=== PATIENT | female | born 1970 | race Caucasian/White ===

== ENCOUNTER 2017-07-08 20:14 | Emergency (ER) | payer MEDICAID | END 2017-07-08 22:43 | disposition home or self-care (01) | LOC: D.ER 20:14 | DX: M54.16 Radiculopathy, lumbar region (principal) ==

== ENCOUNTER 2019-07-22 08:16 | Emergency (ER) | payer MEDICAID ==
[~2019-07-22] VITALS: Ht 165.1 cm; Wt 78.2 kg
[2019-07-22 08:19] VITALS: Ht 165.1 cm; Wt 78.2 kg
[2019-07-22] MEDS ORDERED: CELEXA40 MG PO (08:21)
[2019-07-22] MEDS ORDERED: REXULTI1 MG PO (08:22)
[2019-07-22] MEDS ORDERED: BUSPAR10 MG PO (08:22)
[2019-07-22] MEDS ORDERED: ZANAFLEX4 MG PO (08:23)
[2019-07-22] MEDS ORDERED: CYCLOBENZAPRINE10 MG PO (09:58)
[2019-07-22] MEDS ORDERED: IBUPROFEN800 MG PO (09:58)
[2019-07-22] MEDS ORDERED: ACETAMINOPHEN500 M1 PO (09:58)
[2019-07-22 10:13] VITALS: BP 128/62
== END 2019-07-22 10:14 | disposition home or self-care (01) ==
LOC: D.ER 08:16
DX: M79.641 Pain in right hand (principal); M79.18 Myalgia, other site; S63.91XA Sprain of unspecified part of right wrist and hand, initial encounter; W19.XXXA Unspecified fall, initial encounter; Y93.9 Activity, unspecified; Y92.9 Unspecified place or not applicable

== ENCOUNTER 2019-07-31 18:17 | Emergency (ER) | payer OTHER ==
[~2019-07-31] VITALS: Ht 165.1 cm; Wt 81.8 kg
[~2019-07-31 18:17] MED LIST: ACETAMINOPHEN500 M1 PO; BUSPAR10 MG PO; CELEXA40 MG PO; CYCLOBENZAPRINE10 MG PO; IBUPROFEN800 MG PO; REXULTI1 MG PO; ZANAFLEX4 MG PO
[2019-07-31 18:29] VITALS: Ht 165.1 cm; Wt 81.8 kg
[2019-07-31] MEDS ORDERED: ZOFRAN ODT4 MG/UDTAB PO (20:46)
[2019-07-31] MEDS ORDERED: IBUPROFEN800 MG PO (20:46)
[2019-07-31 21:54] VITALS: BP 125/80
== END 2019-07-31 21:54 | disposition home or self-care (01) ==
LOC: D.ER 18:17
DX: S09.90XA Unspecified injury of head, initial encounter (principal); S01.01XA Laceration without foreign body of scalp, initial encounter; Y00.XXXA Assault by blunt object, initial encounter; Y93.9 Activity, unspecified; Y92.9 Unspecified place or not applicable; R51 Headache